=== PATIENT | female | born 1995 | race Caucasian/White ===

== ENCOUNTER 2022-04-10 11:11 | Emergency (ER) | payer MEDICAID ==
[~2022-04-10] VITALS: Ht 170.2 cm; Wt 68.0 kg
[2022-04-10 11:26] VITALS: BP 100/71
[2022-04-10] MEDS ORDERED: TUBERCULIN PPD 5 UNIT/0.1 ML ID ONE (12:00)
[2022-04-10 12:22] LABS: Alcohol, Urine < 3.0 mg/dL (0-10); Amphetamine Screen, Urine NEGATIVE (NEGATIVE); Barbiturate Scree,Urine NEGATIVE (NEGATIVE); Benzodiazephine Screen, Urine NEGATIVE (NEGATIVE); Cannabinoid Screen, Urine NEGATIVE (NEGATIVE); Cocaine Screen, Urine NEGATIVE (NEGATIVE); Opiate Scree,Urine NEGATIVE (NEGATIVE); Phencyclidine Screen, Urine NEGATIVE (NEGATIVE)
== END 2022-04-10 12:48 | disposition home or self-care (01) ==
LOC: ER 11:11
DX: Z11.1 Encounter for screening for respiratory tuberculosis (principal); Z13.89 Encounter for screening for other disorder; Z02.83 Encounter for blood-alcohol and blood-drug test
CPT/HCPCS: 80307